=== PATIENT | female | born 1990 | race Caucasian/White ===

== ENCOUNTER → 2018-11-11 | Outpatient (CLI) | payer BC | LOC: COL.RAD 08:07 | DX: G24.8 Other dystonia (principal); R41.82 Altered mental status, unspecified | CPT/HCPCS: A9585 ==

== ENCOUNTER → 2019-05-03 | Outpatient (CLI) | payer BC | LOC: COL.RAD 10:25 | DX: E07.89 Other specified disorders of thyroid (principal); Z86.39 Personal history of other endocrine, nutritional and metabolic disease ==

== ENCOUNTER 2021-09-20 15:30 | Outpatient (RCR) | payer BC ==
[2021-09-12 08:21] VITALS: BP 121/76; PULSE 73; TEMP 98.6
[2021-09-12 09:01] VITALS: BP 128/7; PULSE 76
[2021-09-17 15:47] VITALS: BP 103/69; PULSE 69; TEMP 98.5
[~2021-09-20] VITALS: Ht 170.2 cm; Wt 66.3 kg
[2021-09-20 15:43] VITALS: BP 109/70; PULSE 78; TEMP 98.6
== END 2021-09-21 ==
LOC: EUO
DX: D50.9 Iron deficiency anemia, unspecified (principal)
CPT/HCPCS: J1756

== ENCOUNTER 2021-09-27 15:30 | Outpatient (RCR) | payer BC ==
[2021-09-25 16:06] VITALS: BP 137/56; PULSE 82; TEMP 98.4
--- NOTE | 2021-09-25 16:15 | NUR ---
INT DC'D INTACT WITH PRESSURE DRESSING APPLIED. PT STATES NO ADVERSE AFFECTS FROM MED. PT LEAVES AMBULATORY.
[~2021-09-27] VITALS: Ht 170.2 cm; Wt 68.5 kg
[2021-09-27 15:31] VITALS: BP 114/66; PULSE 78; TEMP 97.6
== END 2021-09-27 16:57 | disposition home or self-care (01) ==
LOC: EUO 15:30
DX: D50.9 Iron deficiency anemia, unspecified (principal)
CPT/HCPCS: J1756